=== PATIENT | male | born 1980 | race Caucasian/White ===

== ENCOUNTER 2019-08-24 16:59 | Emergency (ER) | payer OTHER ==
--- NOTE | 2019-08-24 17:55 | ER Document Report ---
ED Medical Screen (RME) - General Chief Complaint: Abdominal Pain Stated Complaint: ABDOMINAL PAIN Time Seen by Provider: 08/24/19 17:51 Mode of Arrival: Ambulatory Information source: Patient Notes: 39-year-old male presented to ED for complaint of right upper quadrant abdominal pain. He states he does have a history of pancreatitis for the last couple years. He states this pain started yesterday. Denies nausea vomiting or diarrhea. He states his last drink of alcohol was Wednesday he states he ate pizza head yesterday for lunch and Oreo using milk last night which made the pain worse. He states he does still have his gallbladder. Have a history of an appendectomy we will get blood work ultrasound and have followed up with another provider. I have greeted and performed a rapid initial assessment of this patient. A comprehensive ED assessment and evaluation of the patient, analysis of test results and completion of medical decision making process will be conducted by an additional ED providers. TRAVEL OUTSIDE OF THE [place] IN LAST 30 DAYS: No - Related Data Allergies/Adverse Reactions: No Known Allergies Allergy (Verified 03/19/18 14:02) Past Medical History Renal/ Medical History: Denies: Hx Peritoneal Dialysis GI Medical History: Reports: Hx Gastroesophageal Reflux Disease Physical Exam - Vital signs Vitals: Temp Pulse Resp BP Pulse Ox 98.1 F 67 16 139/101 H 100 08/24/19 17:15 08/24/19 17:15 08/24/19 17:15 08/24/19 17:15 08/24/19 17:15 Course - Vital Signs Vital signs: Temp Pulse Resp BP Pulse Ox 98.1 F 67 16 139/101 H 100 08/24/19 17:15 08/24/19 17:15 08/24/19 17:15 08/24/19 17:15 08/24/19 17:15
[2019-08-24] MEDS ORDERED: NORMAL SALINE 1000 ML 1,000 ML IV ONE (17:56)
[2019-08-24] MEDS ORDERED: DEXTROSE 5%-1/2 NORMAL SALINE 1,000 ML IV ONE (17:56)
--- NOTE | 2019-08-24 19:25 | RADIOLOGY REPORT (SQ) ---
EXAM DESCRIPTION: U/S ABDOMEN LIMITED W/O DOP COMPLETED DATE/TIME: 08/24/2019 7:15 pm REASON FOR STUDY: Right upper quadrant abdominal pain COMPARISON: 03/23/2018 TECHNIQUE: Dynamic and static grayscale images acquired of the abdomen and recorded on PACS. [place] selected color Doppler and spectral images recorded. LIMITATIONS: None. FINDINGS: PANCREAS: Poorly seen. LIVER: Increased echogenicity. No definable masses. LIVER VASCULATURE: Normal directional flow of the main portal vein and hepatic veins. GALLBLADDER: There appears to be some sludge in the gallbladder. No wall thickening. No pericholecy stic fluid. ULTRASOUND-DETECTED JHA'S SIGN: Negative. INTRAHEPATIC DUCTS AND COMMON DUCT: CBD and intrahepatic ducts normal caliber. No filling defects. INFERIOR VENA CAVA: Normal flow. AORTA: No aneurysm. RIGHT KIDNEY: Normal size, 11.3 cm. Normal echogenicity. No solid or suspicious masses. No hydroneph rosis. No calcifications. PERITONEAL AND RIGHT PLEURAL SPACE: No ascites or effusions. OTHER: No other significant findings. IMPRESSION: Hepatic steatosis. There may be a small amount of sludge in the gallbladder. TECHNICAL DOCUMENTATION: JOB ID: [id number] [employer]- All Rights Reserved Reading location - IP/workstation name: [email or web address]
[2019-08-24 21:08] LABS: ABSOLUTE EOSINOPHILS # (AUTO) 0.2 10^3/uL (0.0-0.6); ABSOLUTE LYMPHOCYTES (AUTO) 1.8 10^3/uL (0.5-4.7); ABSOLUTE MONOCYTES (AUTO) 0.4 10^3/uL (0.1-1.4); ABSOLUTE NEUT (AUTO) 3.9 10^3/uL (1.7-8.2); BASOPHILS % (AUTO) 0.8 % (0-2); EOSINOPHILS % (AUTO) 3.5 % (0-6); HEMATOCRIT 46.1 % (37.9-51.0); HEMOGLOBIN 16.3 g/dL (13.5-17.0); LYMPHOCYTES % (AUTO) 28.1 % (13-45); MEAN CORPUSCULAR HEMOGLOBIN 30.7 pg (27.0-33.4); MEAN CORPUSCULAR HGB CONC 35.5 g/dL (32.0-36.0); MEAN CORPUSCULAR VOLUME 87 fl (80-97); PLATELET COUNT 205 10^3/uL (150-450); RED BLOOD COUNT 5.33 10^6/uL (4.35-5.55); RED CELL DISTRIBUTION WIDTH 12.8 % (11.5-14.0); SEGMENTED NEUTROPHILS % (AUTO) 61.6 % (42-78); TOTAL CELLS COUNTED % (AUTO) 100 %; WHITE BLOOD COUNT 6.4 10^3/uL (4.0-10.5)
[2019-08-24 21:10] LABS: APPEARANCE,URINE CLEAR; BILIRUBIN,URINE NEGATIVE (NEGATIVE); COLOR,URINE YELLOW; GLUCOSE, URINE NEGATIVE (NEGATIVE); KETONES,URINE NEGATIVE (NEGATIVE); PROTEIN,URINE NEGATIVE (NEGATIVE); UROBILINOGEN,URINE NEGATIVE mg/dL (<2.0)
[2019-08-24 21:25] LABS: ALBUMIN 4.7 g/dL (3.5-5.0); ALKALINE PHOSPHATASE 79 U/L (38-126); ANION GAP 9 (5-19); ASPARTATE AMINO TRANSFERASE 46 U/L (17-59); BILIRUBIN,DIRECT 0.1 mg/dL (0.0-0.4); BILIRUBIN,TOTAL 0.9 mg/dL (0.2-1.3); BLOOD UREA NITROGEN 12 mg/dL (7-20); CALCIUM 9.7 mg/dL (8.4-10.2); CARBON DIOXIDE 29 mmol/L (22-30); CHLORIDE 103 mmol/L (98-107); GLUCOSE 87 mg/dL (75-110); POTASSIUM 3.9 mmol/L (3.6-5.0)
[2019-08-24] MEDS ORDERED: KETOROLAC TROMETHAMINE INJ/PF 30 MG/1 ML SDV IV ONE (21:25)
--- NOTE | 2019-08-24 21:50 | ER Document Report ---
ED General - General Chief Complaint: Abdominal Pain Stated Complaint: ABDOMINAL PAIN Time Seen by Provider: 08/24/19 17:51 Primary Care Provider: KEVON CONDE MD [Primary Care Provider] - Follow up in 3-5 days MACI BELL MD [ACTIVE STAFF] - Follow up in 1 week Mode of Arrival: Ambulatory Notes: 39-year-old male with history of pancreatitis presents with right upper quadrant pain for the past few days. Patient states it is constant and has been slowly getting worse. Patient states is worse with eating and better with not eating. Denies any associated nausea/vomiting, diarrhea, constipation, fever, chills. Patient states he has cut back on his drinking but states this feels similar to a pancreatic flare. Patient states he drinks milk tonight and it felt like he "got punched in the abdomen." TRAVEL OUTSIDE OF THE [place] IN LAST 30 DAYS: No - Related Data Allergies/Adverse Reactions: No Known Allergies Allergy (Verified 03/19/18 14:02) Past Medical History - General Information source: Patient - Social History Smoking Status: Unknown if Ever Smoked Family History: Reviewed & Not Pertinent Patient has suicidal ideation: No Patient has homicidal ideation: No Renal/ Medical History: Denies: Hx Peritoneal Dialysis GI Medical History: Reports: Hx Gastroesophageal Reflux Disease Review of Systems - Review of Systems Notes: Constitutional: Negative for fever. HENT: Negative for sore throat. Eyes: Negative for visual changes. Cardiovascular: Negative for chest pain. Respiratory: Negative for shortness of breath. Gastrointestinal: Positive for abdominal pain. Negative for vomiting or diarrhe a. Genitourinary: Negative for dysuria. Musculoskeletal: Negative for back pain. Skin: Negative for rash. Neurological: Negative for headaches, weakness or numbness. 10 point ROS negative except as marked above and in HPI. Physical Exam - Vital signs Vitals: Temp Pulse Resp BP Pulse Ox 98.1 F 67 16 139/101 H 100 08/24/19 17:15 08/24/19 17:15 08/24/19 17:15 08/24/19 17:15 08/24/19 17:15 - Notes Notes: GENERAL: Well-appearing, well-nourished and in no acute distress. HEAD: Atraumatic, normocephalic. EYES: Extraocular movements intact, sclera anicteric, conjunctiva are normal. NECK: Normal range of motion, supple without lymphadenopathy or JVD. ABDOMEN: Soft, tenderness to RUQ. No guarding, no rebound. Negative Livingston's sign. No masses appreciated. EXTREMITIES: Normal range of motion, no pitting or edema. No clubbing or cyanosis. NEUROLOGICAL: Cranial nerves II through XII grossly intact. Normal speech, normal gait. PSYCH: Normal mood, normal affect. SKIN: Warm, Dry, normal turgor, no rashes or lesions noted. Course - Re-evaluation Re-evalutation: 08/24/19 Nontoxic, well appearing 39 y/o male with history of pancreatitis presents for RUQ pain with no associated symptoms. Worse after eating, better with not eating. Especially worse tonight after drinking milk. Abd soft, tender to RUQ without guarding or rebound.Afebrile, nontachycardic. Pt is receiving 1 L NS IV bolus and toradol. Will reassess. Pt's labwork is within normal limits except mildly elevated lipase of 558.1. US abdomen shows gallbladder with sludge with no gallstones, no pericholecystic fluid, no gallbladder wall thickening. 08/24/19 22:30 Pain has improved. Pt to be referred to surgeon. Pt to be given prescriptions for toradol (or ibuprofen) and [place] to go pack for breakthrough pain. Discussed all results with pt. Pt voices understanding and agrees with plan of care. - Vital Signs Vital signs: Temp Pulse Resp BP Pulse Ox 97.6 F 59 L 18 147/86 H 96 08/24/19 21:41 08/24/19 21:41 08/24/19 21:41 08/24/19 21:41 08/24/19 21:41 - Laboratory Result Diagrams: 08/24/19 20:51 08/24/19 20:51 Laboratory results interpreted by me: 08/24/19 20:51 Lipase 558.1 H Discharge - Discharge Clinical Impression: RUQ pain, Biliary colic Condition: Stable Disposition: HOME, SELF-CARE Instructions: Abdominal Pain ([facility]), Gallbladder Disease ([facility]) Additional Instructions: Your ultrasound showed sludge in the gallbladder. Your pain may still be related to gallbladder based on your symptoms. Please drink clear liquids and then advance diet. Your lipase was 558.1 today. Please follow up with surgeon listed in 1 week for further workup. Take either toradol or ibuprofen (do not take both them) and [place] for breakthrough pain. Do not drink or drive while taking [place] as it may make you drowsy. Please return immediately to ER if you start having any worsening symptoms, including fever, worsening abdominal pain, nausea/vomiting, chest pain, shortness of breath, or any other symptoms that are concerning to you. Prescriptions: Ketorolac Tromethamine [Toradol 10 mg Tablet] 10 mg PO Q6HP PRN #24 tablet PRN Reason: Ibuprofen [Motrin 800 mg Tablet] 800 mg PO Q8H PRN #30 tab PRN Reason: Referrals: KEVON CONDE MD [Primary Care Provider] - Follow up in 3-5 days MACI BELL MD [ACTIVE STAFF] - Follow up in 1 week
[2019-08-24] MEDS ORDERED: HYDROCODONE/ACETAMINOPHEN 5-325 MG (6 TAB/ER DISP) PO PRN (22:43)
[2019-08-24 22:51] VITALS: BP 147/89
== END 2019-08-24 22:57 | disposition home or self-care (01) ==
LOC: ER 16:59
DX: K80.50 Calculus of bile duct without cholangitis or cholecystitis without obstruction (principal); R10.11 Right upper quadrant pain
CPT/HCPCS: 99284; 96361; 96374; 36415; 83690; 85025; 80053; 81001; 76705; J1885; J7030

== ENCOUNTER → 2019-10-03 | Outpatient (CLI) | payer OTHER ==
--- NOTE | 2019-10-03 17:01 | RADIOLOGY REPORT (SQ) ---
EXAM DESCRIPTION: CHEST PA/LATERAL COMPLETED DATE/TIME: 10/03/2019 4:54 pm REASON FOR STUDY: PRE-OP COMPARISON: 03/25/2018 EXAM PARAMETERS: NUMBER OF VIEWS: two views TECHNIQUE: Digital Frontal and Lateral radiographic views of the chest acquired. RADIATION DOSE: NA LIMITATIONS: none FINDINGS: LUNGS AND PLEURA: No opacities, masses or pneumothorax. No pleural effusion. MEDIASTINUM AND HILAR STRUCTURES: No masses or contour abnormalities. HEART AND VASCULAR STRUCTURES: Heart normal size. No evidence for failure. BONES: No acute findings. HARDWARE: None in the chest. OTHER: No other significant finding. IMPRESSION: NO SIGNIFICANT RADIOGRAPHIC FINDING IN THE CHEST. TECHNICAL DOCUMENTATION: JOB ID: [id number] 2010 [employer]- All Rights Reserved Reading location - IP/workstation name: [email or web address]
[2019-10-03 17:19] LABS: HEMATOCRIT 42.5 % (37.9-51.0); HEMOGLOBIN 15.2 g/dL (13.5-17.0); MEAN CORPUSCULAR HEMOGLOBIN 31.1 pg (27.0-33.4); MEAN CORPUSCULAR HGB CONC 35.8 g/dL (32.0-36.0); MEAN CORPUSCULAR VOLUME 87 fl (80-97); PLATELET COUNT 178 10^3/uL (150-450); RED BLOOD COUNT 4.88 10^6/uL (4.35-5.55); RED CELL DISTRIBUTION WIDTH 12.9 % (11.5-14.0); WHITE BLOOD COUNT 4.9 10^3/uL (4.0-10.5)
[2019-10-03 17:32] LABS: ALBUMIN 4.5 g/dL (3.5-5.0); ALKALINE PHOSPHATASE 68 U/L (38-126); ANION GAP 10 (5-19); ASPARTATE AMINO TRANSFERASE 64 U/L (17-59); BILIRUBIN,DIRECT 0.2 mg/dL (0.0-0.4); BILIRUBIN,TOTAL 0.9 mg/dL (0.2-1.3); BLOOD UREA NITROGEN 13 mg/dL (7-20); CALCIUM 9.5 mg/dL (8.4-10.2); CARBON DIOXIDE 28 mmol/L (22-30); CHLORIDE 102 mmol/L (98-107); GLUCOSE 75 mg/dL (75-110); POTASSIUM 4.2 mmol/L (3.6-5.0); TOTAL PROTEIN 7.8 g/dL (6.3-8.2)
--- NOTE | 2019-10-03 19:30 | EKG REPORT ---
SEVERITY:- NORMAL ECG - SINUS RHYTHM : Confirmed by: Nirmal Martinez 03-Oct-2019 19:29:49
== END ==
LOC: OD 15:53
PROVIDERS: ATTEND Surgery
DX: Z01.818 Encounter for other preprocedural examination (principal); K80.20 Calculus of gallbladder without cholecystitis without obstruction; K85.10 Biliary acute pancreatitis without necrosis or infection; M35.2 Behcet's disease; K21.9 Gastro-esophageal reflux disease without esophagitis; Z78.9 Other specified health status
CPT/HCPCS: 36415; 71046; 80053; 85027; 93005; 93010

== ENCOUNTER 2019-10-26 16:34 | Observation (INO) | payer OTHER ==
[2019-10-26] MEDS ORDERED: MORPHINE SULFATE 10 MG/ML INJ IV ONE (16:52)
[2019-10-26] MEDS ORDERED: ONDANSETRON HCL INJ/PF 4 MG/2 ML SDV IV ONE (16:52)
[2019-10-26] MEDS ORDERED: NORMAL SALINE 1000 ML 1,000 ML IV ONE ×2 (16:52→18:13)
--- NOTE | 2019-10-26 16:55 | ER Document Report ---
ED Medical Screen (RME) - General Chief Complaint: Abdominal Pain Stated Complaint: RIGHT SIDE FLANK PAIN Time Seen by Provider: 10/26/19 16:48 Mode of Arrival: Ambulatory Information source: Patient Notes: 39-year-old male presented to ED for complaint of right upper abdominal pain he was scheduled to have his gallbladder removed on the he got canceled due to the pandemic covid virus. Patient is alert oriented respirations regular nonlabored. He states the pain is progressively worse all day. He states he has been nauseated and vomiting with no fever. [employer] TRAVEL OUTSIDE OF THE [place] IN LAST 30 DAYS: No - Related Data Allergies/Adverse Reactions: No Known Allergies Allergy (Verified 03/19/18 14:02) Past Medical History Renal/ Medical History: Denies: Hx Peritoneal Dialysis GI Medical History: Reports: Hx Gastroesophageal Reflux Disease Physical Exam - Vital signs Vitals: Temp Pulse Resp BP Pulse Ox 97.7 F 109 H 18 155/105 H 99 10/26/19 16:40 10/26/19 16:40 10/26/19 16:40 10/26/19 16:40 10/26/19 16:40 Course - Vital Signs Vital signs: Temp Pulse Resp BP Pulse Ox 97.7 F 109 H 18 155/105 H 99 10/26/19 16:40 10/26/19 16:40 10/26/19 16:40 10/26/19 16:40 10/26/19 16:40
[2019-10-26 17:12] LABS: ABSOLUTE BASOPHILS # (AUTO) 0.1 10^3/uL (0.0-0.2); ABSOLUTE EOSINOPHILS # (AUTO) 0.1 10^3/uL (0.0-0.6); ABSOLUTE LYMPHOCYTES (AUTO) 1.3 10^3/uL (0.5-4.7); ABSOLUTE MONOCYTES (AUTO) 0.7 10^3/uL (0.1-1.4); ABSOLUTE NEUT (AUTO) 9.1 10^3/uL (1.7-8.2); BASOPHILS % (AUTO) 0.8 % (0-2); EOSINOPHILS % (AUTO) 0.6 % (0-6); HEMATOCRIT 49.9 % (37.9-51.0); HEMOGLOBIN 17.6 g/dL (13.5-17.0); LYMPHOCYTES % (AUTO) 11.6 % (13-45); MEAN CORPUSCULAR HEMOGLOBIN 31.2 pg (27.0-33.4); MEAN CORPUSCULAR HGB CONC 35.3 g/dL (32.0-36.0); MEAN CORPUSCULAR VOLUME 88 fl (80-97); MONOCYTES % (AUTO) 6.5 % (3-13); PLATELET COUNT 209 10^3/uL (150-450); RED BLOOD COUNT 5.66 10^6/uL (4.35-5.55); SEGMENTED NEUTROPHILS % (AUTO) 80.5 % (42-78); TOTAL CELLS COUNTED % (AUTO) 100 %; WHITE BLOOD COUNT 11.3 10^3/uL (4.0-10.5)
--- NOTE | 2019-10-26 17:21 | ER Document Report ---
ED General - General Chief Complaint: Abdominal Pain Stated Complaint: RIGHT SIDE FLANK PAIN Time Seen by Provider: 10/26/19 16:48 Primary Care Provider: KEVON CONDE MD [Primary Care Provider] - Follow up as needed Mode of Arrival: Ambulatory Notes: 39-year-old male with history of gallbladder sludge presents with right upper quadrant pain severe rating to the right shoulder blade last night worse throughout the night and worse throughout the day today preventing him from eating anything and with multiple episodes of vomiting. Pain is extremely severe worse than it ever been before but similar in character to the pain he had last time he was diagnosed with elevated lipase and gallbladder sludge. He actually had his gallbladder scheduled to be removed [address] Damon after seeing him in clinic but the schedule change in his surgery was canceled secondary to the COVID pandemic. He denies a fever. TRAVEL OUTSIDE OF THE [place] IN LAST 30 DAYS: No - Related Data Allergies/Adverse Reactions: No Known Allergies Allergy (Verified 03/19/18 14:02) Past Medical History - General Information source: Patient - Social History Smoking Status: Never Smoker Family History: Reviewed & Not Pertinent Patient has suicidal ideation: No Patient has homicidal ideation: No Renal/ Medical History: Denies: Hx Peritoneal Dialysis GI Medical History: Reports: Hx Gastroesophageal Reflux Disease Review of Systems - Review of Systems Notes: REVIEW OF SYSTEMS GEN: Denies fever, chills, weight loss ENT: Denies sore throat, nasal discharge, ear pain EYES: Denies blurry vision, eye pain, discharge CV: Denies chest pain, palpitations, edema RESP: Denies cough, shortness of breath, wheezing GI: See HPI MSK: Denies joint pain/swelling, edema, SKIN: Denies rash, skin lesions LYMPH: Denies swollen glands/lymph nodes NEURO: Denies headache, focal weakness or numbness, dizziness PSYCH: Denies depression, suicidal or homicidal ideation PHYSICAL EXAMINATION General: Rolled onto his side actively vomiting Head: Atraumatic, normocephalic ENT: Mouth normal, oropharynx moist, no exudates or tonsillar enlargement Eyes: Conjunctiva normal, pupils equal, lids normal Neck: No JVD, supple, no guarding CVS: Normal rate, regular rhythm, no murmurs Resp: No resp distress, equal and normal breath sounds bilaterally GI: Right-sided abdominal tenderness upper and lower with guarding and rebound guarding Ext: No deformities, no edema, normal range of motion in upper and lower ext Back: No CVA or midline TTP Skin: No rash, warm Lymphatic: No lymphadeopathy noted Neuro: Awake, alert. Face symmetric. GCS 15. Physical Exam - Vital signs Vitals: Temp Pulse Resp BP Pulse Ox 97.7 F 109 H 18 155/105 H 99 10/26/19 16:40 10/26/19 16:40 10/26/19 16:40 10/26/19 16:40 10/26/19 16:40 Course - Re-evaluation Re-evalutation: 10/26/19 17:21 Acute abdominal pain and tenderness with a known history of gallstones and sludge Cholecystitis versus pancreatitis versus choledocholithiasis Unlikely appendicitis Patient is ordered for ultrasound at triage and will get this done follow-up labs and reassess after pain medicine 10/26/19 18:13 Patient ultrasound shows some sludge but no acute cholecystitis. Labs show acute pancreatitisthis is probably sludge or biliary related Discussed with Dr. Damon from surgery will admit. Ordered further pain meds nausea medicine and hydrationn.p.o. - Vital Signs Vital signs: Temp Pulse Resp BP Pulse Ox 97.7 F 109 H 18 155/105 H 99 10/26/19 16:40 10/26/19 16:40 10/26/19 16:40 10/26/19 16:40 10/26/19 16:40 - Laboratory Result Diagrams: 10/26/19 17:01 10/26/19 17:01 Laboratory results interpreted by me: 10/26/19 10/26/19 17:01 17:01 WBC 11.3 H RBC 5.66 H Hgb 17.6 H Lymph % (Auto) 11.6 L Absolute Neuts (auto) 9.1 H Seg Neutrophils % 80.5 H Total Bilirubin 1.4 H ALT 72 H Total Protein 8.4 H Lipase 3762.4 H - Diagnostic Test Radiology reviewed: Image reviewed, Reports reviewed Discharge - Discharge Clinical Impression: Gallstone pancreatitis Condition: Fair Disposition: ADMITTED INPATIENT Admitting Provider: Surgicalist Unit Admitted: Surgical Floor Referrals: KEVON CONDE MD [Primary Care Provider] - Follow up as needed
[2019-10-26 17:30] LABS: ALBUMIN 4.8 g/dL (3.5-5.0); ALKALINE PHOSPHATASE 87 U/L (38-126); ANION GAP 10 (5-19); ASPARTATE AMINO TRANSFERASE 52 U/L (17-59); BILIRUBIN,DIRECT 0.2 mg/dL (0.0-0.4); BILIRUBIN,TOTAL 1.4 mg/dL (0.2-1.3); BLOOD UREA NITROGEN 14 mg/dL (7-20); CALCIUM 9.8 mg/dL (8.4-10.2); CARBON DIOXIDE 26 mmol/L (22-30); CHLORIDE 102 mmol/L (98-107); GLUCOSE 108 mg/dL (75-110); POTASSIUM 4.1 mmol/L (3.6-5.0); TOTAL PROTEIN 8.4 g/dL (6.3-8.2)
--- NOTE | 2019-10-26 18:04 | RADIOLOGY REPORT (SQ) ---
EXAM DESCRIPTION: U/S ABDOMEN COMPLETE W/O DOP IMAGES COMPLETED DATE/TIME: 10/26/2019 5:55 pm REASON FOR STUDY: right upper abdominal pain COMPARISON: 08/24/2019 TECHNIQUE: Dynamic and static grayscale images acquired of the abdomen and recorded on PACS. [place]it[place] selected color Doppler and spectral images recorded. Note: Study does not meet criteria for complete doppler/duplex scan LIMITATIONS: None. FINDINGS: PANCREAS: Not visualized due to overlying bowel gas. LIVER: Normal size. Increased echogenicity with decreased visualization of the portal triads. LIVER VASCULATURE: Normal directional flow of the main portal vein and hepatic veins. GALLBLADDER: No stones. Normal wall thickness. No pericholecystic fluid. ULTRASOUND-DETECTED JHA'S SIGN: Negative. INTRAHEPATIC DUCTS AND COMMON DUCT: CBD and intrahepatic ducts normal caliber. No filling defects. INFERIOR VENA CAVA: Normal flow. AORTA: Partially visualized. No aneurysm. RIGHT KIDNEY: Normal size measuring 11.9 cm. Normal echogenicity. No solid or suspicious masses. No hydronephrosis. No calcifications. LEFT KIDNEY: Normal size measuring 11.4 cm Normal echogenicity. No solid or suspicious masses. No hydronephrosis. No calcifications. SPLEEN: Normal size measuring 12.2 cm. No focal lesions. PERITONEAL AND PLEURAL SPACES: No ascites or effusions. OTHER: No other significant finding. IMPRESSION: 1. Hepatic steatosis. 2. Gallbladder sludge. No evidence of acute cholecystitis. TECHNICAL DOCUMENTATION: JOB ID: [id number] 2010 [employer]- All Rights Reserved Reading location - IP/workstation name: [email or web address]
[2019-10-26] MEDS ORDERED: HYDROMORPHONE HCL INJ/PF 2 MG/ML AMPULE IV ONE (18:13)
[2019-10-26] MEDS ORDERED: METOCLOPRAMIDE HCL INJ/PF 10 MG/2 ML SDV IV ONE (18:13)
[2019-10-26 19:46] LABS: APPEARANCE,URINE CLEAR; BILIRUBIN,URINE NEGATIVE (NEGATIVE); COLOR,URINE YELLOW; GLUCOSE, URINE NEGATIVE (NEGATIVE); KETONES,URINE 80 mg/dL (NEGATIVE); PROTEIN,URINE NEGATIVE (NEGATIVE); URINE SPECIFIC GRAVITY 1.017; UROBILINOGEN,URINE NEGATIVE mg/dL (<2.0)
[2019-10-26] MEDS ORDERED: DEXTROSE 40% GEL 15 GM TUBE PO PRN ×2 (22:23)
[2019-10-26] MEDS ORDERED: ONDANSETRON HCL INJ/PF 4 MG/2 ML SDV IV PRN (22:23)
[2019-10-26] MEDS ORDERED: GLUCAGON,HUMAN RECOMB 1 MG INJ SUBCUT PRN (22:23)
[2019-10-26] MEDS ORDERED: DEXTROSE 50%-WATER 25 GM/50 ML DISP.SYRIN IV PRN ×2 (22:23)
[2019-10-26] MEDS: FAMOTIDINE INJ/PF 20 MG/2 ML SDV IV SCH (22:50)
[2019-10-26] MEDS: MORPHINE SULFATE 10 MG/ML INJ IV PRN (22:51)
[2019-10-26] MEDS: DEXTROSE 5%-LACTATED RINGERS 1,000 ML IV PRN (22:51)
[2019-10-27] MEDS: MORPHINE SULFATE 10 MG/ML INJ IV PRN (02:33)
[2019-10-27] MEDS: ACETAMINOPHEN 1,000 MG/100 ML RTUPB IV SCH ×2 (05:32→15:36)
[2019-10-27] MEDS: KETOROLAC TROMETHAMINE INJ/PF 30 MG/1 ML SDV IV SCH ×2 (05:32→15:57)
[2019-10-27] MEDS: DEXTROSE 5%-LACTATED RINGERS 1,000 ML IV PRN (05:39)
--- NOTE | 2019-10-27 06:22 | PDOC H&P ---
History of Present Illness Admission Date/PCP: 10/26/19 19:20 KEVON CONDE MD Patient complains of: abdominal pain History of Present Illness: ANÍBAL ALEMAN is a 39 year old male with known gallbladder sludge. The patient reports increasing amounts of abdominal pain starting yesterday. His pain progressed to the point where he could not stand it anymore. He reports that his pain is constant. It is a sharp, stabbing sensation in his right upper quadrant the bores through to his back. He has had associated nausea and vomiting. He has taken [id number] pain medicine without relief. He reports that it is 9 out of 10. Nothing makes his pain better or worse. He denies fevers or chills. He also denies chest pain, shortness of breath, headac he, dizziness, blurry vision, fatigue, orthostasis, malaise Past Medical History GI Medical History: Reports: Gastroesophageal Reflux Disease Social History Smoking Status: Never Smoker Frequency of Alcohol Use: Occasional Hx Recreational Drug Use: No Drugs: Marijuana Hx Prescription Drug Abuse: No Family History Family History: Reviewed & Not Pertinent Parental Family History Reviewed: Yes Children Family History Reviewed: Yes Sibling(s) Family History Reviewed.: Yes Medication/Allergy Home Medications: Omeprazole 20 mg PO DAILY #30 capsule. 03/26/18 Ketorolac Tromethamine [Toradol 10 mg Tablet] 10 mg PO Q6HP PRN 10/26/19 Allergies/Adverse Reactions: No Known Allergies Allergy (Verified 03/19/18 14:02) Review of Systems Constitutional: ABSENT: chills, fatigue, fever(s), headache(s) Eyes: ABSENT: visual disturbances Ears: ABSENT: hearing changes Nose, Mouth, and Throat: ABSENT: sore throat Cardiovascular: ABSENT: chest pain Respiratory: ABSENT: cough Gastrointestinal: PRESENT: abdominal pain, nausea, vomiting. ABSENT: bloating, hematemesis, hematochezia, melena Genitourinary: ABSENT: dysuria Musculoskeletal: ABSENT: back pain Integumentary: ABSENT: diaphoresis Neurological: ABSENT: confusion, convulsions, dizziness Psychiatric: ABSENT: anxiety, depression Endocrine: ABSENT: cold intolerance, heat intolerance Hematologic/Lymphatic: ABSENT: easy bleeding, easy bruising Physical Exam Vital Signs: Temp Pulse Resp BP Pulse Ox 97.7 F 69 18 158/94 H 98 10/26/19 23:15 10/26/19 23:15 10/26/19 23:15 10/26/19 23:15 10/26/19 20:37 Intake & Output 10/25/19 10/26/19 10/27/19 06:59 06:59 06:59 Intake Total 3000 Output Total 600 Balance 2400 Weight 92.9 kg General appearance: PRESENT: cooperative, mild distress - Abdominal discomfort Head exam: PRESENT: atraumatic, normocephalic Eye exam: PRESENT: EOMI, PERRLA. ABSENT: scleral icterus Mouth exam: PRESENT: moist, neck supple Neck exam: ABSENT: meningismus, tenderness, thyromegaly, tracheal deviation Respiratory exam: PRESENT: symmetrical, unlabored. ABSENT: chest wall tenderness, tachypnea, wheezes Cardiovascular exam: ABSENT: tachycardia Pulses: PRESENT: normal radial pulses Vascular exam: PRESENT: normal capillary refill, pallor GI/Abdominal exam: PRESENT: guarding - Involuntary guarding in the epigastrium, soft, tenderness - Right upper quadrant and epigastrium. ABSENT: distended, rebound Rectal exam: PRESENT: deferred Extremities exam: ABSENT: clubbing Musculoskeletal exam: ABSENT: deformity Neurological exam: PRESENT: alert, awake, oriented to person, oriented to place Psychiatric exam: ABSENT: agitated, anxious, depressed Focused psych exam: ABSENT: delusional Skin exam: ABSENT: cyanosis, erythema, jaundice Results Laboratory Results: 10/26/19 17:01 10/26/19 17:01 10/26/19 10/26/19 10/26/19 17:01 17:01 19:25 WBC 11.3 H RBC 5.66 H Hgb 17.6 H Hct 49.9 MCV 88 MCH 31.2 MCHC 35.3 RDW 13.0 Plt Count 209 Seg Neutrophils % 80.5 H Sodium 137.6 Potassium 4.1 Chloride 102 Carbon Dioxide 26 Anion Gap 10 BUN 14 Creatinine 1.14 Est GFR ( Amer) > 60 Glucose 108 Calcium 9.8 Total Bilirubin 1.4 H AST 52 Alkaline Phosphatase 87 Total Protein 8.4 H Albumin 4.8 Lipase 3762.4 H Urine Color YELLOW Urine Appearance CLEAR Urine pH 6.0 Ur Specific [place] 1.017 Urine Protein NEGATIVE Urine Glucose (UA) NEGATIVE Urine Ketones 80 H Urine Blood NEGATIVE Urine RBC (Auto) 1 Impressions: Abdomen Ultrasound 10/26/19 16:53 IMPRESSION: 1. Hepatic steatosis. 2. Gallbladder sludge. No evidence of acute cholecystitis. Assessment & Plan - Diagnosis (1) Gallstone pancreatitis Is this a current diagnosis for this admission?: Yes - Plan Summary Plan Summary: This is a 39-year-old male with biliary pancreatitis. The patient has a lipase of approximately 3000. Plan for admission to the hospital, initiation of intravenous fluids, and plan for cholecystectomy in the near future. I will repeat his lab work in the morning to get a better idea of how bad his pancreatitis is (or will be). This has been discussed with the patient. He is in agreement with the treatment plan. Further recommendations will be made based on the patient's clinical course.
[2019-10-27 07:42] LABS: ABSOLUTE EOSINOPHILS # (AUTO) 0.1 10^3/uL (0.0-0.6); ABSOLUTE LYMPHOCYTES (AUTO) 1.1 10^3/uL (0.5-4.7); ABSOLUTE MONOCYTES (AUTO) 0.8 10^3/uL (0.1-1.4); ABSOLUTE NEUT (AUTO) 6.3 10^3/uL (1.7-8.2); BASOPHILS % (AUTO) 0.3 % (0-2); MEAN CORPUSCULAR HEMOGLOBIN 31.2 pg (27.0-33.4); MEAN CORPUSCULAR HGB CONC 36.2 g/dL (32.0-36.0); MEAN CORPUSCULAR VOLUME 86 fl (80-97); MONOCYTES % (AUTO) 10.2 % (3-13); PLATELET COUNT 148 10^3/uL (150-450); RED BLOOD COUNT 4.87 10^6/uL (4.35-5.55); RED CELL DISTRIBUTION WIDTH 12.9 % (11.5-14.0); SEGMENTED NEUTROPHILS % (AUTO) 75.5 % (42-78); TOTAL CELLS COUNTED % (AUTO) 100 %; WHITE BLOOD COUNT 8.4 10^3/uL (4.0-10.5)
[2019-10-27 07:54] LABS: ALBUMIN 3.9 g/dL (3.5-5.0); ALKALINE PHOSPHATASE 70 U/L (38-126); ANION GAP 8 (5-19); ASPARTATE AMINO TRANSFERASE 36 U/L (17-59); BILIRUBIN,DIRECT 0.2 mg/dL (0.0-0.4); BILIRUBIN,TOTAL 1.4 mg/dL (0.2-1.3); BLOOD UREA NITROGEN 9 mg/dL (7-20); CALCIUM 9.1 mg/dL (8.4-10.2); CARBON DIOXIDE 23 mmol/L (22-30); CHLORIDE 105 mmol/L (98-107); GLUCOSE 107 mg/dL (75-110); POTASSIUM 3.9 mmol/L (3.6-5.0); TOTAL PROTEIN 7.2 g/dL (6.3-8.2)
[2019-10-27 08:05] LABS: HEMOGLOBIN 15.2 g/dL (13.5-17.0)
[2019-10-27] MEDS: FAMOTIDINE INJ/PF 20 MG/2 ML SDV IV SCH (10:11)
[2019-10-27] MEDS ORDERED: BUPIVACAINE HCL 0.5%-EPI 1:200000 INJ/PF 30 ML VIAL ONE (10:50)
[2019-10-27] MEDS ORDERED: METRONIDAZOLE 500 MG/NS RTU 500 MG/100 ML RTUPB IV ONE (10:52)
[2019-10-27] MEDS ORDERED: CEFAZOLIN INJ 1 GM VIAL ONE (10:52)
[2019-10-27] MEDS ORDERED: FENTANYL CITRATE INJ/PF 250 MCG/5 ML AMPULE ONE (10:58)
[2019-10-27] MEDS ORDERED: EPHEDRINE SULFATE INJ 50 MG/1 ML AMPULE ONE (10:59)
[2019-10-27] MEDS ORDERED: MIDAZOLAM 2 MG/2 ML INJ ONE (10:59)
[2019-10-27] MEDS ORDERED: PROPOFOL INJ 200 MG/20 ML VIAL IV ONE ×2 (10:59→11:00)
[2019-10-27] MEDS ORDERED: MEPERIDINE HCL/PF INJ 25 MG/1 ML DISP.SYRIN IV PRN (12:31)
[2019-10-27] MEDS ORDERED: PROMETHAZINE HCL INJ 25 MG/1 ML VIAL IV PRN (12:31)
[2019-10-27] MEDS ORDERED: MORPHINE SULFATE 10 MG/ML INJ IV PRN (12:31)
[2019-10-27] MEDS ORDERED: FENTANYL CITRATE INJ/PF 100 MCG/2 ML AMPUL IV PRN ×3 (12:31)
[2019-10-27] MEDS ORDERED: DIPHENHYDRAMINE HCL 50 MG/ML VIAL IV PRN (12:31)
--- NOTE | 2019-10-27 13:26 | RADIOLOGY REPORT (SQ) ---
EXAM DESCRIPTION: CHOLANGIOGRAM OPERATIVE IMAGES COMPLETED DATE/TIME: 10/27/2019 1:15 pm REASON FOR STUDY: CHOLANGIOGRAM IN OR COMPARISON: None. FLUOROSCOPY TIME: 0.1 minutes 1 images saved to PACS. TECHNIQUE: Cinegraphic images were obtained from an intraoperative cholangiogram. LIMITATIONS: None. FINDINGS: There is opacification of the bile ducts, cystic duct remnants and second portion of the d uodenum without evidence of fixed filling defect or significant extravasation. Mobile filling defect s within the CBD and right hepatic duct suggestive of intraluminal gas. Please see operative report for detailed description. IMPRESSION: INTRAOPERATIVE CHOLANGIOGRAM. COMMENT: Quality ID [id number]: Final reports for procedures using fluoroscopy that document radiation exp osure indices, or exposure time and number of fluorographic images (if radiation exposure indices are not available) TECHNICAL DOCUMENTATION: JOB ID: [id number] 2010 [employer]- All Rights Reserved Reading location - IP/workstation name: [email or web address]
--- NOTE | 2019-10-27 13:26 | Operative Report ---
Nonrecallable Operative Report DATE OF SURGERY: 10/27/19 PREOPERATIVE DIAGNOSIS: Gallstone pancreatitis POSTOPERATIVE DIAGNOSIS: Gallstone pancreatitis OPERATION: Laparoscopic cholecystectomy with cholangiogram SURGEON: YANA MEDEROS ANESTHESIA: GA - Stephan TISSUE REMOVED OR ALTERED: Gallbladder. COMPLICATIONS: None ESTIMATED BLOOD LOSS: 25 cc INTRAOPERATIVE FINDINGS: See note PROCEDURE: After obtaining informed consent, the patient was taken to the operating room. General Anesthesia was induced; the arms were extended, and the abdomen was exposed, and prepped and draped in a sterile fashion. Instrumentation was set up for laparoscopic cholecystectomy. Surgical plan and surgical timeout were conducted. A vertical incision was made above the umbilicus, and a verres needle was inserted uneventfully into the peritoneal cavity. Pneumoperitoneum was established. The verres needle was removed and a 10 mm trocar was inserted and a 10 mm laparoscope was inserted. Visualization of the peritoneal cavity confirmed safe uneventful entry. Under direct visualization 3 additional 5 mm ports were established, one in the subxiphoid position and second in the subcostal position. Visualization of the hepatobiliary anatomy revealed no anatomic variations. A grasper was placed on the fundus of the gallbladder and the gallbladder is elevated over the right surface of the liver; a second grasper was used to grasp the infundibulum of the gallbladder. The neck of the gallbla dder and junction with the cystic duct was dissected out. The Cystic artery was in its usual location medial and cephalad to the cystic duct. The cystic artery was surrounded with a right angle clamp, clipped twice proximally and divided with laparoscopic scissors. We now opened the triangle of Calot by dividing the peritoneal reflection on both the medial and lateral sides of the cystic duct infundibular junction. The critical view was obtained. We now milked the cystic duct of any possible stones, a cholangiogram catheter was then placed into to the cystic duct after incising the cystic duct. Intraoperative cholangiogram revealed good flow into the duodenum both right left hepatic radicles noted no stones in the common bile duct. We then clipped the cystic duct approximately 2 times once distally and divided with scissors. The gallbladder was now removed from the undersurface of the liver using hook cautery dissection. Graspers were repositioned and the gallbladder was removed uneventfully from the abdominal cavity through the super umbilical port site incision. The specimen was examined, then passed off to pathology for permanent analysis. We returned to the peritoneal cavity check for bleeding, and evidence of bile leak, and there was none. We Confirmed satisfactory placement of clips on cystic duct and cystic artery were secured . At this point we felt the operation was complete. The subcutaneous tissue was then anesthetized with quarter percent Marcaine Sponge and needle counts are correct. All ports removed under direct visualization pneumoperitoneum evacuated, and 5 mm port wounds closed with 3-0 Vicryl suture, benzoin and Steri-Strips. The patient was extubated, and taken to the recovery room in stable condition.
--- NOTE | 2019-10-27 13:32 | PDOC DISCHARGE SUMMARY ---
General - Admit/Disc Date/PCP Admission Date/Primary Care Provider: 10/26/19 19:20 KEVON CONDE MD Discharge Date: 10/27/19 - Discharge Diagnosis Final Diagnosis: Gallstone pancreatitis - Assessment Summary: This is a 39-year-old male who was admitted yesterday with epigastric abdominal pain work-up in the emergency room proved to be pancreatitis with associated gallbladder sludge patient does not have a significant EtOH history. Patient was admitted to the hospital for IV hydration subsequent to that his lipase normalized as well as his bilirubin had only a slight rise to 1.4. Following day his pain resolved his and because lipase started coming down he was taken to the operating for a laparoscopic cholecystectomy. He underwent the procedure tolerated well and because his pain was resolved he felt that he could be discharged home. In fact he wanted to be discharged home on the same operative day. Therefore he is tolerating liquids now and ready for discharge home. He is instructed not to eat a fatty diet for the next 2 to 3 weeks he will be given a postop appointment in 7 to 10 days after discharge he is instructed that he is able to shower but keep the Steri-Strips in place. He will be given a prescription for Garrison for pain. - Additional Information Resuscitation Status: Full Code Discharge Diet: Other (Comments) - Low-fat diet Discharge Activity: Activity As Tolerated Referrals: KEVON CONDE MD [Primary Care Provider] - Follow up as needed Prescriptions: Hydrocodone/Acetaminophen [Garrison 10-325 mg Tablet] 1 tab PO Q6HP PRN #20 tablet PRN Reason: Home Medications: Omeprazole 20 mg PO DAILY #30 capsule. 03/26/18 Ketorolac Tromethamine [Toradol 10 mg Tablet] 10 mg PO Q6HP PRN 10/26/19 Hydrocodone/Acetaminophen [Garrison 10-325 mg Tablet] 1 tab PO Q6HP PRN #20 tablet 10/27/19 History of Present Illiness History of Present Illness: ANÍBAL ALEMAN is a 39 year old male Physical Exam Vital Signs: Temp Pulse Resp BP Pulse Ox 98.3 F 67 12 137/85 H 99 10/27/19 10:18 10/27/19 10:18 10/27/19 10:18 10/27/19 10:18 10/27/19 10:18 Intake & Output 04/09/1410/27/19 10/28/19 06:59 06:59 06:59 Intake Total 3100 Output Total 600 Balance 2500 Weight 92.9 kg Results Laboratory Results: WBC 8.4 10^3/uL (4.0-10.5) 10/27/19 07:00 RBC 4.87 10^6/uL (4.35-5.55) 10/27/19 07:00 Hgb 15.2 g/dL (13.5-17.0) D 10/27/19 07:00 Hct 42.0 % (37.9-51.0) 10/27/19 07:00 MCV 86 fl (80-97) 10/27/19 07:00 MCH 31.2 pg (27.0-33.4) 10/27/19 07:00 MCHC 36.2 g/dL (32.0-36.0) H 10/27/19 07:00 RDW 12.9 % (11.5-14.0) 10/27/19 07:00 Plt Count 148 10^3/uL (150-450) L 10/27/19 07:00 Lymph % (Auto) 13.0 % (13-45) 10/27/19 07:00 [place] % (Auto) 10.2 % (3-13) 10/27/19 07:00 Eos % (Auto) 1.0 % (0-6) 10/27/19 07:00 Baso % (Auto) 0.3 % (0-2) 10/27/19 07:00 Absolute Neuts (auto) 6.3 10^3/uL (1.7-8.2) 10/27/19 07:00 Absolute Lymphs (auto) 1.1 10^3/uL (0.5-4.7) 10/27/19 07:00 Absolute Monos (auto) 0.8 10^3/uL (0.1-1.4) 10/27/19 07:00 Absolute Eos (auto) 0.1 10^3/uL (0.0-0.6) 10/27/19 07:00 Absolute Basos (auto) 0.0 10^3/uL (0.0-0.2) 10/27/19 07:00 Seg Neutrophils % 75.5 % (42-78) 10/27/19 07:00 Sodium 136.0 mmol/L (137-145) L 10/27/19 07:00 Potassium 3.9 mmol/L (3.6-5.0) 10/27/19 07:00 Chloride 105 mmol/L (98-107) 10/27/19 07:00 Carbon Dioxide 23 mmol/L (22-30) 10/27/19 07:00 Anion Gap 8 (5-19) 10/27/19 07:00 BUN 9 mg/dL (7-20) 10/27/19 07:00 Creatinine 0.83 mg/dL (0.52-1.25) 10/27/19 07:00 Est GFR ( Amer) > 60 (>60) 10/27/19 07:00 Est GFR (MDRD) Non-Af > 60 (>60) 10/27/19 07:00 Glucose 107 mg/dL (75-110) 10/27/19 07:00 Calcium 9.1 mg/dL (8.4-10.2) 10/27/19 07:00 Total Bilirubin 1.4 mg/dL (0.2-1.3) H 10/27/19 07:00 Direct Bilirubin 0.2 mg/dL (0.0-0.4) 10/27/19 07:00 Neonat Total Bilirubin Not Reportable 10/27/19 07:00 Neonat Direct Bilirubin Not Reportable 10/27/19 07:00 Neonat Indirect Bili Not Reportable 10/27/19 07:00 AST 36 U/L (17-59) 10/27/19 07:00 ALT 51 U/L (<50) H 10/27/19 07:00 Alkaline Phosphatase 70 U/L (38-126) 10/27/19 07:00 Total Protein 7.2 g/dL (6.3-8.2) 10/27/19 07:00 Albumin 3.9 g/dL (3.5-5.0) 10/27/19 07:00 Lipase 1812.1 U/L (23-300) H 10/27/19 07:00 Urine Color YELLOW 10/26/19 19:25 Urine Appearance CLEAR 10/26/19 19:25 Urine pH 6.0 (5.0-9.0) 10/26/19 19:25 Ur Specific [place] 1.017 10/26/19 19:25 Urine Protein NEGATIVE mg/dL (NEGATIVE) 10/26/19 19:25 Urine Glucose (UA) NEGATIVE mg/dL (NEGATIVE) 10/26/19 19:25 Urine Ketones 80 mg/dL (NEGATIVE) H 10/26/19 19:25 Urine Blood NEGATIVE (NEGATIVE) 10/26/19 19:25 Urine Nitrite (Reflex) NEGATIVE (NEGATIVE) 10/26/19 19:25 Urine Bilirubin NEGATIVE (NEGATIVE) 10/26/19 19:25 Urine Urobilinogen NEGATIVE mg/dL (<2.0) 10/26/19 19:25 Leukocyte Esterase Rfl NEGATIVE (NEGATIVE) 10/26/19 19:25 Urine RBC (Auto) 1 /HPF 10/26/19 19:25 Urine WBC (Reflex) 1 /HPF 10/26/19 19:25 Squamous Epi Cells Auto <1 /HPF 10/26/19 19:25 Urine Mucus (Auto) RARE /LPF 10/26/19 19:25 Urine Ascorbic Acid NEGATIVE (NEGATIVE) 10/26/19 19:25 Impressions: Abdomen Ultrasound 10/26/19 16:53 IMPRESSION: 1. Hepatic steatosis. 2. Gallbladder sludge. No evidence of acute cholecystitis.
[2019-10-27] MEDS ORDERED: NEOSTIGMINE METHYLSULFATE 10 MG/10 ML VIAL ONE (14:18)
[2019-10-27] MEDS ORDERED: ONDANSETRON HCL INJ/PF 4 MG/2 ML SDV ONE (14:18)
[2019-10-27] MEDS ORDERED: GLYCOPYRROLATE 1 MG/5 ML VIAL ONE (14:18)
[2019-10-27] MEDS ORDERED: DEXAMETHASONE SOD PHOSPHATE INJ 4 MG/1 ML VIAL ONE (14:18)
[2019-10-27] MEDS ORDERED: ONDANSETRON HCL INJ/PF 4 MG/2 ML SDV IV PRN (15:00)
[2019-10-27 16:10] VITALS: BP 135/88
== END 2019-10-27 16:40 | disposition home or self-care (01) ==
LOC: ER 16:34 → EH 19:20 → INTOOBSV 19:20 → 4W 20:37
PROVIDERS: ATTEND Surgery
DX: K81.1 Chronic cholecystitis (principal); K21.9 Gastro-esophageal reflux disease without esophagitis
CPT/HCPCS: 99285; 96361; 96374; 96375; 36415 ×2; 83690 ×2; 85025 ×2; 80053 ×2; 81001; 88304 ×2; 74300; 76700; 47563; Q9967; J2250; J3490 ×3; J0690; J1100; J3010; J1885; J2765; J2270 ×2; J2710; J1170; J2405 ×2; J7121 ×2; J7030; J2704; S0028 ×2; J0131; G0378

== ENCOUNTER 2020-04-10 10:16 | Inpatient (IN) | payer OTHER ==
[2020-04-10] MEDS ORDERED: ONDANSETRON HCL INJ/PF 4 MG/2 ML SDV IV ONE (11:05)
[2020-04-10] MEDS ORDERED: NORMAL SALINE 1000 ML 1,000 ML IV ONE (11:05)
[2020-04-10] MEDS ORDERED: MORPHINE SULFATE 10 MG/ML INJ IV ONE ×2 (11:05→13:49)
--- NOTE | 2020-04-10 11:11 | ER Document Report ---
ED GI/ - General Stated Complaint: NAUSEA,VOMITING Time Seen by Provider: 04/10/20 10:54 Primary Care Provider: KEVON CONDE MD [Primary Care Provider] - Follow up as needed Notes: CHIEF COMPLAINT: Right upper quadrant pain with vomiting this morning HPI: 39-year-old male presenting with right upper quadrant pain with vomiting this morning. Patient states that he had pancreatitis and a gallbladder problem in October of this year and had his gallbladder removed by Dr. Damon. Patient began having the pain again today in the right upper quadrant with nausea. Took a hydrocodone which he had at home from a recent dental issue with some resolution of the pain but then while at work it became significantly worse. Now with severe right upper quadrant pain with nausea and 1 episode of vomiting. ROS: See HPI - all other systems were reviewed and are otherwise negative Constitutional: no fever Eyes: no drainage, no blurred vision ENT: no runny nose, no sore throat Cardiovascular: no chest pain Resp: no SOB, no cough GI: + vomiting, no diarrhea, + abdominal pain : no dysuria Integumentary: no rash Allergy: no hives Musculoskeletal: no extremity pain or swelling Neurological: no numbness/tingling, no weakness MEDICATIONS: I agree with the patient medications as charted by the RN. ALLERGIES: I agree with the allergies as charted by the RN. PAST MEDICAL HISTORY/PAST SURGICAL HISTORY: Reviewed and agree as charted by RN. SOCIAL HISTORY: Reviewed and agree as charted by RN. FAMILY HISTORY: No significant familial comorbid conditions directly related to patient complaint EXAM: Reviewed vital signs as charted by RN. CONSTITUTIONAL: Alert and oriented and responds appropriately to questions. Well-appearing; well-nourished, moderate distress secondary to pain HEAD: Normocephalic; atraumatic EYES: 99% on room air not hypoxic conjunctivae clear, sclerae non-icteric ENT: normal nose; no rhinorrhea; moist mucous membranes; pharynx without lesions noted, no uvula edema or deviation, no tonsillar hypertrophy, phonation normal NECK: Supple without meningismus; non-tender; no cervical lymphadenopathy, no masses CARD: RRR; no murmurs, no clicks, no rubs, no gallops; symmetric distal pulses RESP: Normal chest excursion without splinting or tachypnea; breath sounds clear and equal bilaterally; no wheezes, no rhonchi, no rales, pulse oximetry ABD/GI: Normal bowel sounds; non-distended; soft, moderate tenderness in the right upper quadrant and epigastric region on palpation, no rebound, + guarding; no palpable organomegaly or masses. BACK: The back appears normal and is non-tender to palpation, there is no CVA tenderness EXT: Normal ROM in all joints; non-tender to palpation; no cyanosis, no effusion s, no edema SKIN: Normal color for age and race; warm; dry; good turgor; no acute lesions noted NEURO: Moves all extremities equally; Motor and sensory function intact PSYCH: The patient's mood and manner are appropriate. Grooming and personal hygiene are appropriate. MDM: 39-year-old male history of cholecystectomy in October of this year by Dr. Damon who had developed pancreatitis at the time presenting with right upper quadrant pain that he believes is pancreatitis again. Appears moderately uncomfortable. Will obtain CT imaging to evaluate for ductal dilatation, will obtain screening labs, treat patient's pain and reassess TRAVEL OUTSIDE OF THE [place] IN LAST 30 DAYS: No - Related Data Allergies/Adverse Reactions: No Known Allergies Allergy (Verified 03/19/18 14:02) Past Medical History - Social History Smoking Status: Unknown if Ever Smoked Family History: Reviewed & Not Pertinent Renal/ Medical History: Denies: Hx Peritoneal Dialysis GI Medical History: Reports: Hx Gastroesophageal Reflux Disease Physical Exam - Vital signs Vitals: Temp Pulse Resp BP Pulse Ox 98.7 F 65 20 168/108 H 100 04/10/20 10:20 04/10/20 10:20 04/10/20 10:20 04/10/20 10:20 04/10/20 10:20 Course - Re-evaluation Re-evalutation: 04/10/20 13:48 Patient is requesting more pain medication. Will order additional morphine awaiting CT results 04/10/20 14:[address] Kessler, hospitalist. Case discussed, labs and CT imaging reviewed, admit to medical floor - Vital Signs Vital signs: Temp Pulse Resp BP Pulse Ox 98.7 F 65 20 168/108 H 100 04/10/20 10:20 04/10/20 10:20 04/10/20 10:20 04/10/20 10:20 04/10/20 10:20 - Laboratory Result Diagrams: 04/10/20 11:50 04/10/20 11:50 Laboratory results interpreted by me: 04/10/20 04/10/20 11:50 11:50 RBC 5.95 H Hgb 18.5 H Hct 51.5 H Glucose 122 H Calcium 10.3 H Total Bilirubin 1.4 H AST 95 H ALT 113 H Alkaline Phosphatase 136 H Total Protein 9.1 H Albumin 5.4 H Lipase 1784.7 H Discharge - Discharge Clinical Impression: Acute pancreatitis Qualifiers: Pancreatitis type: unspecified pancreatitis type Acute pancreatitis complication: unspecified Qualified Code(s): K85.90 - Acute pancreatitis without necrosis or infection, unspecified Condition: Stable Disposition: ADMITTED INPATIENT Admitting Provider: Tremaine (Hospitalist) Unit Admitted: Medical Floor Referrals: KEVON CONDE MD [Primary Care Provider] - Follow up as needed
[2020-04-10 12:06] LABS: ABSOLUTE EOSINOPHILS # (AUTO) 0.1 10^3/uL (0.0-0.6); ABSOLUTE LYMPHOCYTES (AUTO) 1.1 10^3/uL (0.5-4.7); ABSOLUTE MONOCYTES (AUTO) 0.4 10^3/uL (0.1-1.4); ABSOLUTE NEUT (AUTO) 5.8 10^3/uL (1.7-8.2); BASOPHILS % (AUTO) 0.4 % (0-2); EOSINOPHILS % (AUTO) 1.3 % (0-6); HEMATOCRIT 51.5 % (37.9-51.0); HEMOGLOBIN 18.5 g/dL (13.5-17.0); MEAN CORPUSCULAR HEMOGLOBIN 31.1 pg (27.0-33.4); MEAN CORPUSCULAR HGB CONC 35.9 g/dL (32.0-36.0); MEAN CORPUSCULAR VOLUME 87 fl (80-97); MONOCYTES % (AUTO) 5.3 % (3-13); PLATELET COUNT 217 10^3/uL (150-450); RED BLOOD COUNT 5.95 10^6/uL (4.35-5.55); TOTAL CELLS COUNTED % (AUTO) 100 %; WHITE BLOOD COUNT 7.5 10^3/uL (4.0-10.5)
[2020-04-10 12:38] LABS: ALBUMIN 5.4 g/dL (3.5-5.0); ALKALINE PHOSPHATASE 136 U/L (38-126); ANION GAP 13 (5-19); ASPARTATE AMINO TRANSFERASE 95 U/L (17-59); BILIRUBIN,DIRECT 0.4 mg/dL (0.0-0.4); BILIRUBIN,TOTAL 1.4 mg/dL (0.2-1.3); BLOOD UREA NITROGEN 9 mg/dL (7-20); CALCIUM 10.3 mg/dL (8.4-10.2); CARBON DIOXIDE 28 mmol/L (22-30); CHLORIDE 101 mmol/L (98-107); GLUCOSE 122 mg/dL (75-110); POTASSIUM 4.2 mmol/L (3.6-5.0); TOTAL PROTEIN 9.1 g/dL (6.3-8.2)
--- NOTE | 2020-04-10 13:59 | RADIOLOGY REPORT (SQ) ---
EXAM DESCRIPTION: CT ABD/PELVIS WITH IV ONLY IMAGES COMPLETED DATE/TIME: 04/10/2020 1:42 pm REASON FOR STUDY: ruq pain COMPARISON: 03/21/2018 TECHNIQUE: CT scan of the abdomen and pelvis performed using helical scanning technique with dynamic intravenous contrast injection. No oral contrast. Images reviewed with lung, soft tissue, and bone windows. Reconstructed coronal and sagittal MPR images reviewed. Delayed images for evaluation of the urinary system also acquired. All images stored on PACS. All CT scanners at this facility use dose modulation, iterative reconstruction, and/or weight based d osing when appropriate to reduce radiation dose to as low as reasonably achievable (ALARA). [facility]: Dose Right [facility]: CareDose [facility]: Dose Right [facility]: Teradose 4D [facility]: ezCater CONTRAST TYPE AND DOSE: contrast/concentration: Isovue 350.00 mmol/ml; Total Contrast Delivered: 100 .0 ml; Total Saline Delivered: 37.1 ml RENAL FUNCTION: BUN 9; creatinine 0.97 RADIATION DOSE: CT Rad equipment meets quality standard of care and radiation dose reduction techniq ues were employed. CTDIvol: 8.2 - 11.4 mGy. DLP: 1155 mGy-cm.. LIMITATIONS: None. FINDINGS: LOWER CHEST: No significant findings. No nodules or infiltrates. LIVER: Normal size. No masses. No dilated ducts. Hepatic steatosis. SPLEEN: Normal size. No focal lesions. PANCREAS: Peripancreatic inflammatory changes are seen particularly about the pancreatic head. The p ancreatic duct is not dilated. GALLBLADDER: Surgically absent. ADRENAL GLANDS: No significant masses or asymmetry. RIGHT KIDNEY AND URETER: No solid masses. No significant calcifications. No hydronephrosis or hyd roureter. LEFT KIDNEY AND URETER: No solid masses. No significant calcifications. No hydronephrosis or hydr oureter. AORTA AND VESSELS: No aneurysm. No dissection. Renal arteries, SMA, celiac without stenosis. RETROPERITONEUM: No retroperitoneal adenopathy, hemorrhage or masses. BOWEL AND PERITONEAL CAVITY: No masses or inflammatory changes. No free fluid or peritoneal masses. APPENDIX: Surgically absent. PELVIS: No mass. No free fluid. Normal bladder. ABDOMINAL WALL: No masses. No hernias. BONES: No significant or acute findings. OTHER: No other significant finding. IMPRESSION: Constellation of findings consistent with acute pancreatitis. No focal fluid collection or abscess. TECHNICAL DOCUMENTATION: JOB ID: [id number] Quality ID # [id number]: Final reports with documentation of one or more dose reduction techniques (e.g., Au tomated exposure control, adjustment of the mA and/or kV according to patient size, use of iterative reconstruction technique) 2010 [employer]- All Rights Reserved Reading location - IP/workstation name: [email or web address]
[2020-04-10 14:18] LABS: APPEARANCE,URINE CLEAR; BILIRUBIN,URINE NEGATIVE (NEGATIVE); COLOR,URINE YELLOW; GLUCOSE, URINE NEGATIVE (NEGATIVE); KETONES,URINE TRACE mg/dL (NEGATIVE); LEUKOCYTE ESTERASE,URINE NEGATIVE (NEGATIVE); NITRITE,URINE NEGATIVE (NEGATIVE); PROTEIN,URINE NEGATIVE (NEGATIVE); URINE SPECIFIC GRAVITY 1.029; UROBILINOGEN,URINE NEGATIVE mg/dL (<2.0)
[2020-04-10] MEDS ORDERED: ONDANSETRON HCL INJ/PF 4 MG/2 ML SDV IV PRN (16:40)
[2020-04-10] MEDS ORDERED: DEXTROSE 40% GEL 15 GM TUBE PO PRN ×2 (16:40)
[2020-04-10] MEDS ORDERED: GLUCAGON,HUMAN RECOMB 1 MG INJ SUBCUT PRN (16:40)
[2020-04-10] MEDS ORDERED: DEXTROSE 50%-WATER 25 GM/50 ML DISP.SYRIN IV PRN ×2 (16:40)
[2020-04-10] MEDS ORDERED: HYDROMORPHONE HCL INJ/PF 2 MG/ML AMPULE IV ONE (17:00)
[2020-04-10] MEDS ORDERED: KETOROLAC TROMETHAMINE INJ/PF 30 MG/1 ML SDV IV ONE (17:00)
--- NOTE | 2020-04-10 17:22 | PDOC H&P ---
History of Present Illness Admission Date/PCP: 04/10/20 15:28 KEVON CONDE MD Patient complains of: abdominal pain History of Present Illness: ANÍBAL ALEMAN is a 39 year old male, past medical history of Behcet's disease, previous history of acute pancreatitis at least 3 times in the past latest one October 2019, when he was admitted for abdominal pain. Ultrasound showed biliary sludge. He underwent treatment for acute pancreatitis and subsequent removal of gallbladder laparoscopically. He is coming in today because of abdominal pain which is similar to his previous abdominal pain related to pancreatitis. Abdominal pain started this afternoon, epigastric later on treatment generalized abdominal pain, constant, nonradiating, 10 out of 10 on pain scale, mildly relieved by [place] intake. He complains of nausea but no vomiting, he denies any fever, chest pain, shortness of breath. In the emergency room he was noted to be in significant pain. Blood pressure 168/108, heart rate of 52, temperature 97.6. CBC showed a WBC count of 7.5 hemoglobin of 18.5. CMP showed calcium of 10.3 glucose 122 creatinine 1.97 BUN of 9. Total bili 1.4 which is around his baseline. CT abdomen with IV contrast showed pancreatic inflammatory changes seen particularly about the pancreatic head pancreatic duct is not dilated surgically absent gallbladder. Given morphine in the ED and normal saline bolus. He was subsequently admitted for further management. According to the patient he has had several bouts of pancreatitis. He admits to drinking about 5 to 6 days/week with 5-6 drinks in an 8-hour period when he is drinking. Last alcohol intake Wednesday. Past Medical History Cardiac Medical History: Reports: None Pulmonary Medical History: Reports: None EENT Medical History: Reports: None, Other - History of Behcet's disease Neurological Medical History: Reports: None Endocrine Medical History: Reports: None Renal/ Medical History: Reports: None Malignancy Medical History: Reports: None GI Medical History: Reports: Gastroesophageal Reflux Disease, Other - History of recurrent pancreatitis Musculoskeltal Medical History: Reports: None Psychiatric Medical History: Reports: Alcohol Dependency Traumatic Medical History: Reports: None Hematology: Reports: None Infectious Medical History: Reports: None Past Surgical History Past Surgical History: Reports: Appendectomy, Cholecystectomy Social History Information Source: Patient Lives with: Family Smoking Status: Unknown if Ever Smoked Frequency of Alcohol Use: Social - Alcoholic consumption about 5-6 times per week, 5-6 drinks when when he is drinking that day Last Alcohol Use: 04/08/20 Hx Recreational Drug Use: No Drugs: Marijuana Hx Prescription Drug Abuse: No Family History Family History: Reviewed & Not Pertinent Parental Family History Reviewed: Yes Children Family History Reviewed: Yes Sibling(s) Family History Reviewed.: Yes Medication/Allergy Home Medications: Omeprazole 20 mg PO DAILY #30 capsule. 03/26/18 Ketorolac Tromethamine [Toradol 10 mg Tablet] 10 mg PO Q6HP PRN 10/26/19 Hydrocodone/Acetaminophen [Bern 10-325 mg Tablet] 1 tab PO Q6HP PRN #20 tablet 10/27/19 Allergies/Adverse Reactions: No Known Allergies Allergy (Verified 03/19/18 14:02) Review of Systems Constitutional: ABSENT: chills, fever(s) Eyes: PRESENT: as per HPI Ears: PRESENT: as per HPI Cardiovascular: ABSENT: chest pain, dyspnea on exertion, edema, palpitations Respiratory: ABSENT: cough, dyspnea Gastrointestinal: PRESENT: abdominal pain, heartburn, nausea. ABSENT: vomiting Genitourinary: ABSENT: difficulty urinating Musculoskeletal: ABSENT: back pain Integumentary: ABSENT: diaphoresis Endocrine: ABSENT: cold intolerance, flushing Hematologic/Lymphatic: ABSENT: easy bleeding Physical Exam Vital Signs: Temp Pulse Resp BP Pulse Ox 97.6 F 52 L 19 174/105 H 100 04/10/20 16:40 04/10/20 16:40 04/10/20 16:40 04/10/20 16:40 04/10/20 16:40 Intake & Output 04/09/20 04/10/20 04/11/20 06:59 06:59 06:59 Intake Total 1000 Balance 1000 Weight 89.811 kg General appearance: PRESENT: cooperative, other - in significant pain Eye exam: PRESENT: EOMI, PERRLA Mouth exam: PRESENT: moist Neck exam: PRESENT: full ROM Respiratory exam: PRESENT: clear to auscultation glory, symmetrical, unlabored. ABSENT: rales, wheezes Cardiovascular exam: PRESENT: RRR, +S1, +S2 GI/Abdominal exam: PRESENT: diminished bowel sounds, distended, soft, tenderness - Epigastric and periumbilical area. ABSENT: guarding, rebound Rectal exam: PRESENT: deferred Extremities exam: PRESENT: full ROM Musculoskeletal exam: PRESENT: full ROM Neurological exam: PRESENT: alert, awake, oriented to person, oriented to place, oriented to time, oriented to situation Skin exam: PRESENT: normal color Results Laboratory Results: 04/10/20 11:50 04/10/20 11:50 04/10/20 04/10/20 04/10/20 11:50 11:50 11:50 WBC 7.5 RBC 5.95 H Hgb 18.5 H Hct 51.5 H MCV 87 MCH 31.1 MCHC 35.9 RDW 13.0 Plt Count 217 Seg Neutrophils % 78.0 Sodium 142.2 Potassium 4.2 Chloride 101 Carbon Dioxide 28 Anion Gap 13 BUN 9 Creatinine 0.97 Est GFR ( Amer) > 60 Glucose 122 H Calcium 10.3 H Total Bilirubin 1.4 H AST 95 H Alkaline Phosphatase 136 H Total Protein 9.1 H Albumin 5.4 H Triglycerides 264 H Lipase 1784.7 H Urine Color Urine Appearance Urine pH Ur Specific [place] Urine Protein Urine Glucose (UA) Urine Ketones Urine Blood Urine Nitrite Ur Leukocyte Esterase Urine WBC (Auto) Urine RBC (Auto) 04/10/20 13:55 WBC RBC Hgb Hct MCV MCH MCHC RDW Plt Count Seg Neutrophils % Sodium Potassium Chloride Carbon Dioxide Anion Gap BUN Creatinine Est GFR ( Amer) Glucose Calcium Total Bilirubin AST Alkaline Phosphatase Total Protein Albumin Triglycerides Lipase Urine Color YELLOW Urine Appearance CLEAR Urine pH 7.0 Ur Specific [place] 1.029 Urine Protein NEGATIVE Urine Glucose (UA) NEGATIVE Urine Ketones TRACE H Urine Blood SMALL H Urine Nitrite NEGATIVE Ur Leukocyte Esterase NEGATIVE Urine WBC (Auto) 1 Urine RBC (Auto) 2 Impressions: Abdomen/Pelvis CT 04/10/20 11:06 IMPRESSION: Constellation of findings consistent with acute pancreatitis. No focal fluid collection or abscess. Assessment and Plan - Diagnosis (1) Acute pancreatitis Qualifiers: Pancreatitis type: alcohol induced Acute pancreatitis complication: no infection or necrosis Qualified Code(s): K85.20 - Alcohol induced acute pancreatitis without necrosis or infection Is this a current diagnosis for this admission?: Yes Plan: -Coming in due to abdominal pain few hours duration, epigastric, 10 out of 10 similar to previous pancreatitis episode -Has prior history of pancreatitis at least 4 times that he can remember. -Last episode October 2019 admitted at [place]. Underwent laparoscopic cholecystectomy -Has a history of alcohol use. Drinks about 5-6 times per week consuming 5-6 drinks in an 8-hour period when he is drinking -Lipase 1784.7, BUN 9 creatinine 0.97 triglycerides 264 -CT abdomen consistent with acute pancreatitis no pseudocyst or necrosis - BISAP score 0 low mortality - NPO - IV fluids - dilaudid for pain (2) Alcohol use disorder Is this a current diagnosis for this admission?: Yes Plan: -Last alcohol intake Wednesday -Will order CIWA scoring -advised to refrain from drinking since it is aggravating his pancreatitis (3) Behcet's disease Is this a current diagnosis for this admission?: Yes Plan: - not on treatment (4) Epigastric abdominal pain Is this a current diagnosis for this admission?: Yes Plan: - secondary to pancraetitis - dilaudid and toradol for pain - Time Time Spent with patient: 25-34 minutes Medications reviewed and adjusted accordingly: Yes Anticipated Discharge Disposition: Home, Self Care Anticipated Discharge Timeframe: within 48 hours - Inpatient Certification Based on my medical assessment, after consideration of the patient's comorbidities, presenting symptoms, or acuity I expect that the services needed warrant INPATIENT care.: Yes I certify that my determination is in accordance with my understanding of Medicare's requirements for reasonable and necessary INPATIENT services [42 CFR 412.3e].: Yes Medical Necessity: Need for Pain Control
[2020-04-10] MEDS ORDERED: LORAZEPAM INJ 2 MG/1 ML VIAL IV PRN (17:23)
[2020-04-10] MEDS: NORMAL SALINE 1000 ML 1,000 ML IV PRN ×2 (18:05→23:13)
[2020-04-10] MEDS: PANTOPRAZOLE SODIUM 40 MG VIAL IV SCH (18:05)
[2020-04-10] MEDS: HYDROMORPHONE HCL INJ/PF 2 MG/ML AMPULE IV PRN ×2 (19:51→23:04)
[2020-04-10] MEDS: HEPARIN SOD (PORCINE) 5,000 UNIT/ML 1 ML VIAL SUBCUT SCH (21:07)
[2020-04-10] MEDS: KETOROLAC TROMETHAMINE INJ/PF 30 MG/1 ML SDV IV SCH (23:04)
[2020-04-11] MEDS: HYDRALAZINE HCL 10 MG TABLET PO PRN ×2 (01:39→10:08)
[2020-04-11] MEDS: HYDROMORPHONE HCL INJ/PF 2 MG/ML AMPULE IV PRN ×8 (02:05→23:20)
[2020-04-11] MEDS: METOPROLOL TARTRATE PF/INJ 5 MG/5 ML SDV IV PRN ×2 (04:24→09:00)
[2020-04-11] MEDS: NORMAL SALINE 1000 ML 1,000 ML IV PRN ×4 (04:29→21:34)
[2020-04-11] MEDS: PANTOPRAZOLE SODIUM 40 MG VIAL IV SCH ×2 (04:59→17:17)
[2020-04-11] MEDS: KETOROLAC TROMETHAMINE INJ/PF 30 MG/1 ML SDV IV SCH ×4 (05:07→23:19)
[2020-04-11] MEDS: HEPARIN SOD (PORCINE) 5,000 UNIT/ML 1 ML VIAL SUBCUT SCH ×3 (05:07→21:35)
[2020-04-11 05:58] LABS: ABSOLUTE MONOCYTES (AUTO) 0.8 10^3/uL (0.1-1.4); ABSOLUTE NEUT (AUTO) 6.7 10^3/uL (1.7-8.2); BASOPHILS % (AUTO) 0.3 % (0-2); EOSINOPHILS % (AUTO) 0.4 % (0-6); HEMATOCRIT 45.5 % (37.9-51.0); LYMPHOCYTES % (AUTO) 11.9 % (13-45); MEAN CORPUSCULAR HEMOGLOBIN 30.9 pg (27.0-33.4); MEAN CORPUSCULAR HGB CONC 35.4 g/dL (32.0-36.0); MEAN CORPUSCULAR VOLUME 87 fl (80-97); MONOCYTES % (AUTO) 9.1 % (3-13); PLATELET COUNT 188 10^3/uL (150-450); RED BLOOD COUNT 5.22 10^6/uL (4.35-5.55); RED CELL DISTRIBUTION WIDTH 12.8 % (11.5-14.0); SEGMENTED NEUTROPHILS % (AUTO) 78.3 % (42-78); TOTAL CELLS COUNTED % (AUTO) 100 %; WHITE BLOOD COUNT 8.6 10^3/uL (4.0-10.5)
[2020-04-11 05:59] LABS: HEMOGLOBIN 16.1 g/dL (13.5-17.0)
[2020-04-11 06:19] LABS: ALBUMIN 3.7 g/dL (3.5-5.0); ALKALINE PHOSPHATASE 96 U/L (38-126); ANION GAP 8 (5-19); ASPARTATE AMINO TRANSFERASE 65 U/L (17-59); BILIRUBIN,DIRECT 0.3 mg/dL (0.0-0.4); BILIRUBIN,TOTAL 1.5 mg/dL (0.2-1.3); BLOOD UREA NITROGEN 8 mg/dL (7-20); CALCIUM 8.6 mg/dL (8.4-10.2); CARBON DIOXIDE 22 mmol/L (22-30); CHLORIDE 106 mmol/L (98-107); GLUCOSE 111 mg/dL (75-110); POTASSIUM 4.3 mmol/L (3.6-5.0); TOTAL PROTEIN 6.4 g/dL (6.3-8.2)
[2020-04-11] MEDS ORDERED: ENALAPRILAT DIHYDRATE INJ/PF 2.5 MG/2 ML SDV IV PRN (08:27)
[2020-04-11] MEDS ORDERED: ONDANSETRON HCL INJ/PF 4 MG/2 ML SDV IV PRN (12:00)
[2020-04-11] MEDS: AMLODIPINE BESYLATE 10 MG TABLET PO SCH (12:22)
--- NOTE | 2020-04-11 18:46 | PDOC PROGRESS REPORT ---
Subjective Progress Note for:: 04/11/20 Subjective:: ANÍBAL ALEMAN is a 39 year old male, past medical history of Behcet's disease, previous history of acute pancreatitis at least 3 times in the past latest one October 2019, when he was admitted for abdominal pain. Ultrasound showed biliary sludge. He underwent treatment for acute pancreatitis and subsequent removal of gallbladder laparoscopically. He is coming in today because of abdominal pain which is similar to his previous abdominal pain related to pancreatitis. Abdominal pain started this afternoon, epigastric later on treatment generalized abdominal pain, constant, nonradiating, 10 out of 10 on pain scale, mildly relieved by [place] intake. He complains of nausea but no vomiting, he denies any fever, chest pain, shortness of breath. In the emergency room he was noted to be in significant pain. Blood pressure 168/108, heart rate of 52, temperature 97.6. CBC showed a WBC count of 7.5 hemoglobin of 18.5. CMP showed calcium of 10.3 glucose 122 creatinine 1.97 BUN of 9. Total bili 1.4 which is around his baseline. CT abdomen with IV contrast showed pancreatic inflammatory changes seen particularly about the pancreatic head pancreatic duct is not dilated surgically absent gallbladder. Given morphine in the ED and normal saline bolus. He was subsequently admitted for further management. According to the patient he has had several bouts of pancreatitis. He admits to drinking about 5 to 6 days/week with 5-6 drinks in an 8-hour period when he is drinking. Last alcohol intake Wednesday. D2 hospital stay 04/11/20. He still complains of abdominal pain relieved by dilaudid. He still has some nausea and poor appetite and would prefer not to eat for now. Afebrile. CBC and CMP unremarkable. Would continue IV fluids and pain medications. Reason For Visit: ACUTE PANCREATITIS Physical Exam Vital Signs: Temp Pulse Resp BP Pulse Ox 98.7 F 74 12 169/113 H 93 04/11/20 13:00 04/11/20 13:00 04/11/20 13:00 04/11/20 13:00 04/11/20 13:00 Intake & Output 04/10/20 04/11/20 04/12/20 06:59 06:59 06:59 Intake Total 3160 947 Output Total 550 Balance 3160 397 Weight 202.7 kg General appearance: PRESENT: no acute distress, cooperative Head exam: PRESENT: atraumatic, normocephalic Eye exam: PRESENT: EOMI, PERRLA Mouth exam: PRESENT: moist Neck exam: PRESENT: full ROM Respiratory exam: PRESENT: clear to auscultation glory, symmetrical, unlabored Cardiovascular exam: PRESENT: RRR, +S1, +S2 Pulses: PRESENT: normal radial pulses Vascular exam: PRESENT: normal capillary refill GI/Abdominal exam: PRESENT: distended, normal bowel sounds, soft, tenderness Extremities exam: PRESENT: full ROM Musculoskeletal exam: PRESENT: full ROM Neurological exam: PRESENT: alert, awake, oriented to person, oriented to place, oriented to time Psychiatric exam: PRESENT: normal mood Skin exam: PRESENT: normal color Results Laboratory Results: 04/11/20 05:16 04/11/20 05:16 04/11/20 04/11/20 05:16 05:16 WBC 8.6 RBC 5.22 Hgb 16.1 D Hct 45.5 MCV 87 MCH 30.9 MCHC 35.4 RDW 12.8 Plt Count 188 Seg Neutrophils % 78.3 H Sodium 135.7 L Potassium 4.3 Chloride 106 Carbon Dioxide 22 Anion Gap 8 BUN 8 Creatinine 0.76 Est GFR ( Amer) > 60 Glucose 111 H Calcium 8.6 Total Bilirubin 1.5 H AST 65 H Alkaline Phosphatase 96 Total Protein 6.4 Albumin 3.7 Impressions: Abdomen/Pelvis CT 04/10/20 11:06 IMPRESSION: Constellation of findings consistent with acute pancreatitis. No focal fluid collection or abscess. Assessment and Plan - Diagnosis (1) Acute pancreatitis Qualifiers: Pancreatitis type: alcohol induced Acute pancreatitis complication: no infection or necrosis Qualified Code(s): K85.20 - Alcohol induced acute pancreatitis without necrosis or infection Is this a current diagnosis for this admission?: Yes Plan: -Coming in due to abdominal pain few hours duration, epigastric, 10 out of 10 similar to previous pancreatitis episode -Has prior history of pancreatitis at least 4 times that he can remember. -Last episode October 2019 admitted at [place]. Underwent laparoscopic cholecystectomy -Has a history of alcohol use. Drinks about 5-6 times per week consuming 5-6 drinks in an 8-hour period when he is drinking -Lipase 1784.7, BUN 9 creatinine 0.97 triglycerides 264 -CT abdomen consistent with acute pancreatitis no pseudocyst or necrosis - BISAP score 0 low mortality - NPO - IV fluids - dilaudid for pain (2) Alcohol use disorder Is this a current diagnosis for this admission?: Yes Plan: -Last alcohol intake Wednesday -CIWA scoring -advised to refrain from drinking since it is aggravating his pancreatitis (3) Behcet's disease Is this a current diagnosis for this admission?: Yes Plan: - not on treatment (4) Epigastric abdominal pain Is this a current diagnosis for this admission?: Yes Plan: - secondary to pancraetitis - dilaudid and toradol for pain - Time Time Spent with patient: 25-34 minutes Anticipated Discharge Disposition: Home, Self Care Anticipated Discharge Timeframe: within 48 hours
[2020-04-12] MEDS: NORMAL SALINE 1000 ML 1,000 ML IV PRN ×3 (02:42→12:38)
[2020-04-12] MEDS: PANTOPRAZOLE SODIUM 40 MG VIAL IV SCH (05:17)
[2020-04-12] MEDS: KETOROLAC TROMETHAMINE INJ/PF 30 MG/1 ML SDV IV SCH ×2 (05:17→12:33)
[2020-04-12] MEDS: HEPARIN SOD (PORCINE) 5,000 UNIT/ML 1 ML VIAL SUBCUT SCH ×2 (05:18→13:29)
[2020-04-12 06:28] LABS: ABSOLUTE LYMPHOCYTES (AUTO) 0.7 10^3/uL (0.5-4.7); ABSOLUTE NEUT (AUTO) 8.2 10^3/uL (1.7-8.2); BASOPHILS % (AUTO) 0.3 % (0-2); EOSINOPHILS % (AUTO) 0.4 % (0-6); HEMOGLOBIN 14.3 g/dL (13.5-17.0); LYMPHOCYTES % (AUTO) 7.1 % (13-45); MEAN CORPUSCULAR HEMOGLOBIN 31.4 pg (27.0-33.4); MEAN CORPUSCULAR HGB CONC 35.8 g/dL (32.0-36.0); MEAN CORPUSCULAR VOLUME 88 fl (80-97); MONOCYTES % (AUTO) 10.1 % (3-13); PLATELET COUNT 137 10^3/uL (150-450); RED BLOOD COUNT 4.55 10^6/uL (4.35-5.55); RED CELL DISTRIBUTION WIDTH 13.1 % (11.5-14.0); SEGMENTED NEUTROPHILS % (AUTO) 82.1 % (42-78); TOTAL CELLS COUNTED % (AUTO) 100 %
[2020-04-12] MEDS: AMLODIPINE BESYLATE 10 MG TABLET PO SCH (09:43)
[2020-04-12] MEDS ORDERED: ACETAMINOPHEN 325 MG TABLET PO PRN (10:17)
[2020-04-12] MEDS ORDERED: LIDOCAINE 5% (700 MG) TRANSDERMAL ADH..PATCH TP SCH (14:00)
[2020-04-12] MEDS ORDERED: BACLOFEN 20 MG TABLET PO PRN (15:07)
--- NOTE | 2020-04-12 15:18 | PDOC PROGRESS REPORT ---
Subjective Progress Note for:: 04/12/20 Subjective:: ANÍBAL ALEMAN is a 39 year old male, past medical history of Behcet's disease, previous history of acute pancreatitis at least 3 times in the past latest one October 2019, when he was admitted for abdominal pain. Ultrasound showed biliary sludge. He underwent treatment for acute pancreatitis and subsequent removal of gallbladder laparoscopically. He is coming in today because of abdominal pain which is similar to his previous abdominal pain related to pancreatitis. Abdominal pain started this afternoon, epigastric later on treatment generalized abdominal pain, constant, nonradiating, 10 out of 10 on pain scale, mildly relieved by [place] intake. He complains of nausea but no vomiting, he denies any fever, chest pain, shortness of breath. In the emergency room he was noted to be in significant pain. Blood pressure 168/108, heart rate of 52, temperature 97.6. CBC showed a WBC count of 7.5 hemoglobin of 18.5. CMP showed calcium of 10.3 glucose 122 creatinine 1.97 BUN of 9. Total bili 1.4 which is around his baseline. CT abdomen with IV contrast showed pancreatic inflammatory changes seen particularly about the pancreatic head pancreatic duct is not dilated surgically absent gallbladder. Given morphine in the ED and normal saline bolus. He was subsequently admitted for further management. According to the patient he has had several bouts of pancreatitis. He admits to drinking about 5 to 6 days/week with 5-6 drinks in an 8-hour period when he is drinking. Last alcohol intake Wednesday. D2 hospital stay 04/11/20. He still complains of abdominal pain relieved by dilaudid. He still has some nausea and poor appetite and would prefer not to eat for now. Afebrile. CBC and CMP unremarkable. Would continue IV fluids and pain medications. D3 hospital stay 04/12/20. He was seen and examined at bedside. He reports improvement of abdominal pain, no nause/vomiting, no fever. he is ready to try food, general diet ordered. Labs unremarkable, lipase still elevated but improved from admission. Reason For Visit: ACUTE PANCREATITIS Physical Exam Vital Signs: Temp Pulse Resp BP Pulse Ox 98.1 F 89 20 149/90 H 94 04/12/20 10:00 04/12/20 09:07 04/12/20 09:07 04/12/20 09:07 04/12/20 09:07 Intake & Output 04/11/20 04/12/20 04/13/20 06:59 06:59 06:59 Intake Total 3160 2947 1947 Output Total 1550 Balance 3160 1397 1947 Weight 202.7 kg 94.6 kg General appearance: PRESENT: no acute distress, cooperative Head exam: PRESENT: atraumatic, normocephalic Eye exam: PRESENT: EOMI, PERRLA Mouth exam: PRESENT: moist Neck exam: PRESENT: full ROM Respiratory exam: PRESENT: clear to auscultation glory, symmetrical, unlabored. ABSENT: rales, wheezes Cardiovascular exam: PRESENT: RRR, +S1, +S2 GI/Abdominal exam: PRESENT: normal bowel sounds, soft. ABSENT: rebound, tenderness Extremities exam: PRESENT: full ROM Musculoskeletal exam: PRESENT: full ROM Neurological exam: PRESENT: alert, awake, oriented to person, oriented to place, oriented to time, oriented to situation Psychiatric exam: PRESENT: normal mood Skin exam: PRESENT: normal color Results Laboratory Results: 04/12/20 05:45 04/11/20 05:16 04/12/20 04/12/20 05:45 05:45 WBC 10.0 RBC 4.55 Hgb 14.3 Hct 40.0 MCV 88 MCH 31.4 MCHC 35.8 RDW 13.1 Plt Count 137 L Seg Neutrophils % 82.1 H Lipase 1191.2 H Impressions: Abdomen/Pelvis CT 04/10/20 11:06 IMPRESSION: Constellation of findings consistent with acute pancreatitis. No focal fluid collection or abscess. Assessment and Plan - Diagnosis (1) Acute pancreatitis Qualifiers: Pancreatitis type: alcohol induced Acute pancreatitis complication: no infection or necrosis Qualified Code(s): K85.20 - Alcohol induced acute pancreatitis without necrosis or infection Is this a current diagnosis for this admission?: Yes Plan: -Coming in due to abdominal pain few hours duration, epigastric, 10 out of 10 similar to previous pancreatitis episode -Has prior history of pancreatitis at least 4 times that he can remember. -Last episode October 2019 admitted at [place]. Underwent laparoscopic cholecystectomy -Has a history of alcohol use. Drinks about 5-6 times per week consuming 5-6 drinks in an 8-hour period when he is drinking -Lipase 1784>1197.7, BUN 9 creatinine 0.97 triglycerides 264 -CT abdomen consistent with acute pancreatitis no pseudocyst or necrosis - BISAP score 0 low mortality - general diet - IV fluids - toradol and tylenol for pain (2) Alcohol use disorder Is this a current diagnosis for this admission?: Yes Plan: -Last alcohol intake Wednesday -CIWA scoring -advised to refrain from drinking since it is aggravating his pancreatitis (3) Behcet's disease Is this a current diagnosis for this admission?: Yes Plan: - not on treatment (4) Epigastric abdominal pain Is this a current diagnosis for this admission?: Yes Plan: - secondary to pancraetitis - dilaudid and toradol for pain - Time Time Spent with patient: 25-34 minutes Anticipated Discharge Disposition: Home, Self Care Anticipated Discharge Timeframe: within 24 hours
--- NOTE | 2020-04-12 15:55 | PDOC DISCHARGE SUMMARY ---
Impression - Admit/DC Date/PCP Admission Date/Primary Care Provider: 04/10/20 15:28 KEVON CONDE MD Discharge Date: 04/12/20 - Discharge Diagnosis (1) Acute pancreatitis Is this a current diagnosis for this admission?: Yes (2) Alcohol use disorder Is this a current diagnosis for this admission?: Yes (3) Behcet's disease Is this a current diagnosis for this admission?: Yes (4) Epigastric abdominal pain Is this a current diagnosis for this admission?: Yes - Additional Information Discharge Diet: As Tolerated Discharge Activity: Activity As Tolerated Referrals: KEVON CONDE MD [Primary Care Provider] - Follow up as needed Prescriptions: Bisacodyl [Fast Relief Laxative] 1 supp RC DAILY PRN #1 pkg PRN Reason: Ketorolac Tromethamine [Toradol 10 mg Tablet] 10 mg PO Q6HP PRN 7 Days #30 tablet PRN Reason: Home Medications: Omeprazole 20 mg PO QAM 04/10/20 Bisacodyl [Fast Relief Laxative] 1 supp RC DAILY PRN #1 pkg 04/12/20 Ketorolac Tromethamine [Toradol 10 mg Tablet] 10 mg PO Q6HP PRN 7 Days #30 tablet 04/12/20 History of Present Illiness History of Present Illness: ANÍBAL ALEMAN is a 39 year old male, past medical history of Behcet's disease, previous history of acute pancreatitis at least 3 times in the past latest one October 2019, when he was admitted for abdominal pain. Ultrasound showed biliary sludge. He underwent treatment for acute pancreatitis and subsequent removal of gallbladder laparoscopically. He is coming in today because of abdominal pain which is similar to his previous abdominal pain related to pancreatitis. Abdominal pain started this afternoon, epigastric later on treatment generalized abdominal pain, constant, nonradiating, 10 out of 10 on pain scale, mildly relieved by Galt intake. He complains of nausea but no vomiting, he denies any fever, chest pain, shortness of breath. In the emergency room he was noted to be in significant pain. Blood pressure 168/108, heart rate of 52, temperature 97.6. CBC showed a WBC count of 7.5 hemoglobin of 18.5. CMP showed calcium of 10.3 glucose 122 creatinine 1.97 BUN of 9. Total bili 1.4 which is around his baseline. CT abdomen with IV contrast showed pancreatic inflammatory changes seen particularly about the pancreatic head pancreatic duct is not dilated surgically absent gallbladder. Given morphine in the ED and normal saline bolus. He was subsequently admitted for further management. According to the patient he has had several bouts of pancreatitis. He admits to drinking about 5 to 6 days/week with 5-6 drinks in an 8-hour period when he is drinking. Last alcohol intake Wednesday. Hospital Course Hospital Course: The patient was put on NPO and was started on IV pain medications and IV fluids. On the 2nd day day, he still had abdominal pain although less than when he came in, he reamined NPo. On the 3rd HD, he was able to eat and tolerate general diet and he was subsequently discharged on toradol, protonix and stool softeners. Advised to follow up with PCP Physical Exam Vital Signs: Temp Pulse Resp BP Pulse Ox 97.7 F 97 20 162/96 H 95 04/12/20 12:44 04/12/20 12:44 04/12/20 09:07 04/12/20 12:44 04/12/20 12:44 Intake & Output 04/11/20 04/12/20 04/13/20 06:59 06:59 06:59 Intake Total 3160 2947 1947 Output Total 1550 Balance 3160 1397 1947 Weight 202.7 kg 94.6 kg General appearance: PRESENT: no acute distress, cooperative Head exam: PRESENT: atraumatic, normocephalic Eye exam: PRESENT: EOMI, PERRLA Mouth exam: PRESENT: moist Neck exam: PRESENT: full ROM Cardiovascular exam: PRESENT: RRR, +S1, +S2. ABSENT: tachycardia Pulses: PRESENT: +2 pedal pulses bilateral GI/Abdominal exam: PRESENT: normal bowel sounds, soft. ABSENT: rebound, tenderness Extremities exam: PRESENT: full ROM Musculoskeletal exam: PRESENT: full ROM Neurological exam: PRESENT: alert, awake, oriented to person, oriented to place, oriented to time, oriented to situation Psychiatric exam: PRESENT: normal mood Skin exam: PRESENT: normal color Results Laboratory Results: WBC 10.0 10^3/uL (4.0-10.5) 04/12/20 05:45 RBC 4.55 10^6/uL (4.35-5.55) 04/12/20 05:45 Hgb 14.3 g/dL (13.5-17.0) 04/12/20 05:45 Hct 40.0 % (37.9-51.0) 04/12/20 05:45 MCV 88 fl (80-97) 04/12/20 05:45 MCH 31.4 pg (27.0-33.4) 04/12/20 05:45 MCHC 35.8 g/dL (32.0-36.0) 04/12/20 05:45 RDW 13.1 % (11.5-14.0) 04/12/20 05:45 Plt Count 137 10^3/uL (150-450) L 04/12/20 05:45 Lymph % (Auto) 7.1 % (13-45) L 04/12/20 05:45 Bent % (Auto) 10.1 % (3-13) 04/12/20 05:45 Eos % (Auto) 0.4 % (0-6) 04/12/20 05:45 Baso % (Auto) 0.3 % (0-2) 04/12/20 05:45 Absolute Neuts (auto) 8.2 10^3/uL (1.7-8.2) 04/12/20 05:45 Absolute Lymphs (auto) 0.7 10^3/uL (0.5-4.7) 04/12/20 05:45 Absolute Monos (auto) 1.0 10^3/uL (0.1-1.4) 04/12/20 05:45 Absolute Eos (auto) 0.0 10^3/uL (0.0-0.6) 04/12/20 05:45 Absolute Basos (auto) 0.0 10^3/uL (0.0-0.2) 04/12/20 05:45 Seg Neutrophils % 82.1 % (42-78) H 04/12/20 05:45 Sodium 135.7 mmol/L (137-145) L 04/11/20 05:16 Potassium 4.3 mmol/L (3.6-5.0) 04/11/20 05:16 Chloride 106 mmol/L (98-107) 04/11/20 05:16 Carbon Dioxide 22 mmol/L (22-30) 04/11/20 05:16 Anion Gap 8 (5-19) 04/11/20 05:16 BUN 8 mg/dL (7-20) 04/11/20 05:16 Creatinine 0.76 mg/dL (0.52-1.25) 04/11/20 05:16 Est GFR ( Amer) > 60 (>60) 04/11/20 05:16 Est GFR (MDRD) Non-Af > 60 (>60) 04/11/20 05:16 Glucose 111 mg/dL (75-110) H 04/11/20 05:16 Calcium 8.6 mg/dL (8.4-10.2) 04/11/20 05:16 Total Bilirubin 1.5 mg/dL (0.2-1.3) H 04/11/20 05:16 Direct Bilirubin 0.3 mg/dL (0.0-0.4) 04/11/20 05:16 Neonat Total Bilirubin Not Reportable 04/11/20 05:16 Neonat Direct Bilirubin Not Reportable 04/11/20 05:16 Neonat Indirect Bili Not Reportable 04/11/20 05:16 AST 65 U/L (17-59) H 04/11/20 05:16 ALT 89 U/L (<50) H 04/11/20 05:16 Alkaline Phosphatase 96 U/L (38-126) 04/11/20 05:16 Total Protein 6.4 g/dL (6.3-8.2) 04/11/20 05:16 Albumin 3.7 g/dL (3.5-5.0) 04/11/20 05:16 Triglycerides 264 mg/dL (<150) H 04/10/20 11:50 Lipase 1191.2 U/L (23-300) H 04/12/20 05:45 Urine Color YELLOW 04/10/20 13:55 Urine Appearance CLEAR 04/10/20 13:55 Urine pH 7.0 (5.0-9.0) 04/10/20 13:55 Ur Specific [place] 1.029 04/10/20 13:55 Urine Protein NEGATIVE mg/dL (NEGATIVE) 04/10/20 13:55 Urine Glucose (UA) NEGATIVE mg/dL (NEGATIVE) 04/10/20 13:55 Urine Ketones TRACE mg/dL (NEGATIVE) H 04/10/20 13:55 Urine Blood SMALL (NEGATIVE) H 04/10/20 13:55 Urine Nitrite NEGATIVE (NEGATIVE) 04/10/20 13:55 Urine Bilirubin NEGATIVE (NEGATIVE) 04/10/20 13:55 Urine Urobilinogen NEGATIVE mg/dL (<2.0) 04/10/20 13:55 Ur Leukocyte Esterase NEGATIVE (NEGATIVE) 04/10/20 13:55 Urine WBC (Auto) 1 /HPF 04/10/20 13:55 Urine RBC (Auto) 2 /HPF 04/10/20 13:55 Squamous Epi Cells Auto <1 /HPF 04/10/20 13:55 Urine Mucus (Auto) RARE /LPF 04/10/20 13:55 Urine Ascorbic Acid NEGATIVE (NEGATIVE) 04/10/20 13:55 Impressions: Abdomen/Pelvis CT 04/10/20 11:06 IMPRESSION: Constellation of findings consistent with acute pancreatitis. No focal fluid collection or abscess. Plan Health Concerns: none Plan of Treatment: - advised to abstain from alcohol - follow up with PCP Time Spent: Less than 30 Minutes Stroke Is this a Stroke Patient?: No Acute Heart Failure Is this a Heart Failure Patient?: No
[2020-04-12 16:08] VITALS: BP 146/96
== END 2020-04-12 16:32 | disposition home or self-care (01) | DRG 439 ==
LOC: ER 10:16 → EH 15:28 → 4S 16:54
PROVIDERS: ADMIT Internal Medicine; ATTEND Internal Medicine
PROC: HZ2ZZZZ Detoxification Services for Substance Abuse Treatment (ICD-10-PCS; principal; 2020-04-10)
DX: K85.20 Alcohol induced acute pancreatitis without necrosis or infection (principal); M35.2 Behcet's disease; K83.9 Disease of biliary tract, unspecified; K21.9 Gastro-esophageal reflux disease without esophagitis; F10.20 Alcohol dependence, uncomplicated
CPT/HCPCS: 36415; 74177; 80053; 81001; 83690; 84478; 85025; 96361; 96374; 96375; 96376; 99285; C9113; J1170; J1644; J1885; J2270; J2405; J3490; J7030